=== PATIENT | female | born 1990 | race Caucasian/White ===

== ENCOUNTER 2016-06-04 13:03 | Outpatient (CLI) | payer OTHER ==
[~2016-06-04] VITALS: Ht 152.4 cm; Wt 69.2 kg
[~2016-06-04 13:03] MED LIST: CALC1TAB98 PO; FOLI1POW MC; IRON1TAB78 PO; PREN1TAB13 PO
[2016-06-04 13:13] VITALS: Ht 152.4 cm; Wt 69.2 kg
[2016-06-04 13:14] VITALS: BP 107/62; PULSE 100; RESP 18
--- NOTE | 2016-06-04 14:04 | RADRPT ---
PROCEDURE: US OB. CLINICAL INDICATION: Size and dates , IUGR TECHNIQUE: Multiple sonographic images of the pelvis and gravid uterus were obtained. The images were reviewed on a PACS workstation. COMPARISON: No prior studies are available for comparison. FINDINGS: There is a single viable intrauterine gestation. Cardiac activity is present with 148 beats per min [place]. There is a vertex presentation. The placenta is posterior. There is no evidence for an abruption or placenta previa. Measurements were made in order to determine age. The results are as follows: BPD =8.8 cm HC =31.9 cm AC =31.6 cm FL =6.8 cm Estimated gestational age of approximately 35 weeks and 4 days based on ultrasound measurements. Clinical age: 37 weeks and 1 day. The estimated date of delivery is 07/05/16, based on ultrasound measurements. The EFW = 2668 g, 15.8%, based on LMP age. RPTAT: AA IMPRESSION: Single viable intrauterine gestation of approximately 35 weeks and 4 days based on ultrasound measu rements. .He Reynolds MD, MD Date Time Electronically viewed and signed by .He Reynolds MD, on 06/04/2016 14:03 .S/
--- NOTE | 2016-06-04 14:05 | RADRPT ---
PROCEDURE: US OB biophysical profile. CLINICAL INDICATION: decreased movements, IUGR TECHNIQUE: Multiple sonographic images of the pelvis were obtained. The images were reviewed on a PACS workstation. COMPARISON: Same day FINDINGS: There is a single viable intrauterine gestation. Cardiac activity is present with 131 beats per min [place]. There is a vertex presentation. The placenta is posterior. There is no evidence of placental abruption. There is a normal amount of amniotic fluid with an FATOUMATA = 9.4 cm. Biophysical profile: movement 2/2 tone 2/2. breathing 2/2 FATOUMATA 2/2 Total 11/26 RPTAT: AA . IMPRESSION: Normal biophysical profile. . .He Reynolds MD, MD Date Time Electronically viewed and signed by .He Reynolds MD, MD on 06/04/2016 14:05 .S/
--- NOTE | 2016-06-04 14:43 | PN ---
Date/Time of Note Date/Time of Note DATE: 06/04/16 TIME: 14:37 OB Subjective Subjective Subjective June 04, 2016 Triage consult This patient is a 25 years old 2 para 1 0 with 1 spontaneous vaginal delivery in the past her due date is June 21, 2016 now 37 week. She came to the triage area to rule out IUGR she was actually sent from the clinic for the. In reviewing her past history as I mentioned she had 1 spontaneous vaginal delivery. She denies any surgeries or any other major medical problem she says she is allergic to ibuprofen and iodine other than that past medical history is negative on examination she is a well-developed well-nourished lady near term. Her ear nose throat is normal no thyroid enlargement chest is clear to auscultation percussion heart normal sinus rhythm abdomen is soft no contractions at this time. Uterus appears to be in vertex presentation was seen CVA tenderness extremities are normal no edema no varicosities. Rectal examination was not performed on exam her vital signs are normal. Blood pressure 101/62 pulse rate 100 lab test. NST was reactive with fairly good acceleration and variability no decelerations on ultrasound estimated weight was reported that 2668 g. Her biophysical profile was reported / her FATOUMATA was 9.4 cm disposition this positive finding patient will be discharged home and she will be followed by a perinatologist end of dictation thank you GABRIELA PRADO MD Jun 04, 2016 14:43
== END 2016-06-04 14:50 | disposition home or self-care (01) ==
LOC: OBT 13:03 → L-D 13:04 → OBT 14:50
PROVIDERS: ATTEND Obstetrics & Gynecology
DX: O36.5930 Maternal care for other known or suspected poor fetal growth, third trimester, not applicable or unspecified (principal); O36.8130 Decreased fetal movements, third trimester, not applicable or unspecified; Z3A.37 37 weeks gestation of pregnancy
CPT/HCPCS: 76815; 76818; Z7500; G0463

== ENCOUNTER 2016-06-11 13:24 | Outpatient (CLI) | payer OTHER ==
[~2016-06-11] VITALS: Ht 152.4 cm; Wt 69.7 kg
[2016-06-11 13:42] VITALS: Ht 152.4 cm; Wt 69.7 kg
[2016-06-11 13:43] VITALS: BP 113/55; PULSE 100; RESP 18
--- NOTE | 2016-06-11 14:25 | RADRPT ---
PROCEDURE: US biophysical profile. CLINICAL INDICATION: Decreased motion. TECHNIQUE: Multiple sonographic images of the uterus were obtained. The images were revi ewed on a PACS workstation. COMPARISON: 06/04/2016. FINDINGS: There is a single live intrauterine gestation. heart rate is 137 beats per minute. The position is cephalic. The placenta is right lateral grade II with no abruption or previa. The FATOUMATA is 8.0 cm. (Normal = 5-20 cm.) Breathing Movement: 2 Gross Body Movement: 2 Tone: 2 Qualitative Amniotic Fluid Volume: 2 TOTAL: 8 IMPRESSION: 1. The biophysical score is 8/8. 2. Amniotic fluid index is 8.0 cm. RPTAT: QQ .Alex Amato MD, Date Time Electronically viewed and signed by .Alex Amato MD, on 06/11/2016 14:25 .R/
--- NOTE | 2016-06-11 14:27 | RADRPT ---
PROCEDURE: Obstetrical ultrasound. CLINICAL INDICATION: , evaluation. Pelvic pain. TECHNIQUE: Transabdominal sonographic images of the pelvis are obtained. COMPARISON: Pelvic ultrasound 06/04/2016 FINDINGS: Single intrauterine gestation. There is a cephalic presentation. Measurements were made in order to determine age. The results are as follows: BPD = 8.81 cm HC = 32.03 cm AC = 33.48 cm FL = 7.13 cm Heart rate = 156 beats per minute The placenta is right lateral. There is no evidence for an abruption or placenta previa. Ovaries are not visualized. IMPRESSION: Single intrauterine gestation of approximately 36 weeks 3 days by ultrasound criteria. Estimated weight = 3044 g; 29 percentile for estimated ultrasound age. RPTAT: AADD .Get Gonzalez MD, Date Time Electronically viewed and signed by .Get Gonzalez MD, on 06/11/2016 14:27 .B/
--- NOTE | 2016-06-11 15:46 | CONS ---
Date/Time of Note Date/Time of Note DATE: 06/11/16 TIME: 15:40 Consultation Date/Type/Reason Admit Date/Time June 11, 2069 Triage consult: This patient is a 25 years old 2 para 1 with EDC of 06/24/2016 which makes her 38 weeks and 1 day. She came to triage area to rule out possible intrauterine growth retardation and possible low amniotic fluid On general examination she appeared to be very normal ,ear, nose throat. Chest. Heart, extremities all within normal limits. Abdomen was soft. heart tone was around 135 beats per minute. She was having rare contractions. heart tracing was reactive, no deceleration, good accelerations good variability. Her vital signs were normal; blood pressure 113/50 pulse rate 100 and temperature was 96 . The NST was reactive On the ultrasound study estimated weight was 3044 g. Biophysical profile was 8 over 8, amniotic fluid index was 8 cm. Disposition. With these positive findings patient was discharged home to be followed in the clinic. She will return for further evaluation next week. Initial Consult Date Exam/Review of Systems Vital Signs Vitals Vital Signs Date Time Temp Pulse Resp B/P Pulse Ox O2 Delivery O2 Flow Rate FiO2 06/11/16 13:43 98.2 100 18 113/55 Room Air GABRIELA PRADO MD Jun 11, 2016 15:46
== END 2016-06-11 15:40 | disposition home or self-care (01) ==
LOC: OBT 13:24 → L-D 13:25 → OBT 15:40
PROVIDERS: ATTEND Obstetrics & Gynecology
DX: O62.9 Abnormality of forces of labor, unspecified (principal); Z3A.38 38 weeks gestation of pregnancy
CPT/HCPCS: 76815; 76818; Z7500; G0463

== ENCOUNTER 2016-06-14 14:28 | Outpatient (CLI) | payer OTHER ==
[~2016-06-14] VITALS: Ht 152.4 cm; Wt 70.7 kg
[2016-06-14 14:33] VITALS: Ht 152.4 cm; Wt 70.7 kg
[2016-06-14 15:17] VITALS: BP 114/63; PULSE 104; RESP 18
--- NOTE | 2016-06-14 15:19 | RADRPT ---
PROCEDURE: US OB biophysical profile. CLINICAL INDICATION: decreased movements, IUGR TECHNIQUE: Multiple sonographic images of the pelvis were obtained. The images were reviewed on a PACS workstation. COMPARISON: 06/11/2016 FINDINGS: There is a single viable intrauterine gestation. Cardiac activity is present with 122 beats per min [place]. There is a vertex presentation. The placenta is fundal. There is no evidence of placental abruption. There is a normal amount of amniotic fluid with an FATOUMATA = 12.9 cm. Biophysical profile: movement 2/2 tone 2/2. breathing 2/2 FATOUMATA 2/2 Total 11/26 RPTAT: AA . IMPRESSION: Normal biophysical profile. . .He Reynolds MD, MD Date Time Electronically viewed and signed by .He Reynolds MD, MD on 06/14/2016 15:19 .S/
--- NOTE | 2016-06-14 16:12 | HP ---
Date/Time of Note Date/Time of Note DATE: 06/14/16 TIME: 16:09 OB - History Hx of Present Free Text/Dictation OB Triage Pt is a 25yo at 38+4 with concern for IUGR (EFW 29%ile on 06/11 w/FATOUMATA 8.0cm ) presenting to OB triage for NST/BPP/FATOUMATA. Pt reports normal FM, denies LOF, VB or UCs. PROCEDURE: US OB biophysical profile. CLINICAL INDICATION: decreased movements, IUGR TECHNIQUE: Multiple sonographic images of the pelvis were obtained. The images were reviewed on a PACS workstation. COMPARISON: 06/11/2016 FINDINGS: There is a single viable intrauterine gestation. Cardiac activity is present with 122 beats per minute. There is a vertex presentation. The placenta is fundal. There is no evidence of placental abruption. There is a normal amount of amniotic fluid with an FATOUMATA = 12.9 cm. Biophysical profile: movement 2/2 tone 2/2. breathing 2/2 FATOUMATA 2/2 Total 11/26 RPTAT: AA . IMPRESSION: Normal biophysical profile. Estimated Due Date: Jun 24, 2016 : 2 Para: 1 Obstetrical Complications: Growth Restriction (concern for IUGR) Past Family/Social History * Past Medical, Surgical, Family and Obstetric Histories reviewed from chart. OB Admission Exam Vital Signs Vital Signs Vital Signs Date Time Temp Pulse Resp B/P Pulse Ox O2 Delivery O2 Flow Rate FiO2 06/14/16 15:17 97.6 104 18 114/63 Room Air Physical Exam Heart Rate: 130's Accelerations: Accelerations Present Decelerations: No Decelerations Varibility: Moderate Contractions on Admission: >10 Minutes Apart (2 UCs/1 hour) OB Assessment/Plan Other Assessment: Reassuring status Other plan: Reactive NST, normal BPP and FATOUMATA Results reviewed with Dr. Torres by OB diabetes specialist and pt noted to be appropriate for d/c home Pt will f/up on 06/17/16 for repeat NST/BPP/FATOUMATA Strict precautions for FKC, Labor and ROM reviewed Patient's questions were answered to her satisfaction CAIT KELLY MD Jun 14, 2016 16:12
== END 2016-06-14 15:53 | disposition home or self-care (01) ==
LOC: OBT 14:28 → L-D 14:28 → OBT 15:53
PROVIDERS: ATTEND Obstetrics & Gynecology
DX: O36.5930 Maternal care for other known or suspected poor fetal growth, third trimester, not applicable or unspecified (principal); O36.8130 Decreased fetal movements, third trimester, not applicable or unspecified; Z3A.38 38 weeks gestation of pregnancy
CPT/HCPCS: 76818; Z7500; G0463

== ENCOUNTER 2016-06-17 16:00 | Outpatient (CLI) | payer OTHER ==
[~2016-06-17] VITALS: Ht 152.4 cm; Wt 70.4 kg
[2016-06-17 16:16] VITALS: Ht 152.4 cm; Wt 70.4 kg
[2016-06-17 16:17] VITALS: BP 110/62; PULSE 96; RESP 18
--- NOTE | 2016-06-17 17:00 | RADRPT ---
PROCEDURE: US OB biophysical profile. CLINICAL INDICATION: decreased movements, low FATOUMATA TECHNIQUE: Multiple sonographic images of the pelvis were obtained. The images were reviewed on a PACS workstation. COMPARISON: 06/14/2016 FINDINGS: There is a single viable intrauterine gestation. Cardiac activity is present with 146 beats per min [place]. There is a vertex presentation. The placenta is fundal. There is no evidence of placental abruption. There is a slightly decreased amount of amniotic fluid with an FATOUMATA = 7.2 cm. Biophysical profile: movement 2/2 tone 2/2. breathing 2/2 FATOUMATA 2/2 Total 11/26 RPTAT: AA . IMPRESSION: Normal biophysical profile. Mild oligohydramnios. . .He Reynolds MD, MD Date Time Electronically viewed and signed by .He Reynolds MD, MD on 06/17/2016 17:00 .S/
--- NOTE | 2016-06-17 18:25 | TRIAGE ---
OB Triage Datetime Report Generated by CPN: 06/17/2016 18:24 Datetime: 06/17/2016 18:00 Labor Evaluation Frequency: OCC Monitor Mode: External Duration (sec)2399: 50-70 Quality: Mild Pattern: Normal: <= 5 Contractions in 10 Minutes Resting Tone [place]: Relaxed Heart Rate FHR Baseline Rate: 135 FHR Baseline Changes: No Baseline Change Variability: Moderate 6-25 bpm Accelerations: 15X15 Decelerations: None Category: Category I Datetime: 06/17/2016 17:29 Vaginal Exam Dilatation (cms): 0.0 Effacement (%): 0 Station: -3 Exam By: CKUNIYOSHI Vaginal Bleeding: None Cervix, Consistency: Moderate Cervix, Position: Posterior Datetime: 06/17/2016 17:12 Labor Evaluation Frequency: x3 Monitor Mode: External Duration (sec)2399: 60 Quality: Mild Pattern: Normal: <= 5 Contractions in 10 Minutes Resting Tone [place]: Relaxed Heart Rate FHR Baseline Rate: 135 FHR Baseline Changes: No Baseline Change Variability: Moderate 6-25 bpm Accelerations: 15X15 Decelerations: None Category: Category I Datetime: 06/17/2016 16:21 Assessment Type: Admission Assessment Maternal Assessment Level of Consciousness: Fully Conscious DTR's/Clonus: DTRs 2+; No Clonus Headache: Denies Blurred Vision: No Respiratory Effort: Unlabored; Regular Rhythm; Equal Expansion Breath Sounds, Left: Clear and Equal Breath Sounds, Right: Clear and Equal Nausea/Vomiting: Denies RUQ Epigastric Pain: Denies Lower Extremities Edema: None Degree: None Upper Extremities Edema: None Degree: None Facial Edema: None Fall Risk Assessment History of Falling: (0) No Secondary Diagnosis: (0) No Ambulatory Aid: (0) Bedrest/Nurse Assist IV Therapy: (0) No Gait: (0) Normal/Bedrest/Immobile Mental Status: (0) Oriented to Own Ability Fall Score: 0 Fall Risk Score Definition: No Risk: No action required Labor Evaluation Frequency: OCCAS Monitor Mode: External Duration (sec)2399: 50-80 Quality: Mild Pattern: Normal: <= 5 Contractions in 10 Minutes Resting Tone [place]: Relaxed Heart Rate FHR Baseline Rate: 135 Monitor Mode: External US Variability: Moderate 6-25 bpm Accelerations: 15X15 Decelerations: None Category: Category I Datetime: 06/17/2016 16:19 Time of Arrival: 06/17/2016 15:56 EGA: 39.0 Arrived By: Ambulatory Arrived From: Home Chief Complaint: FOLLOW UP BPP WITH FATOUMATA Movement: Present Contractions: Denies/Absent Rupture of Membranes: Denies Vaginal Bleeding: None Vaginal Discharge: Denies Recent Sexual Intercouse: Denies Abdominal Trauma: Not Applicable Patient Complaints: Other Initial Plan: NST, BPP AND FATOUMATA Datetime: 06/14/2016 15:30 Monitor Mode: External Resting Tone [place]: Relaxed Heart Rate FHR Baseline Rate: 140 Monitor Mode: External US FHR Baseline Changes: No Baseline Change Variability: Moderate 6-25 bpm Accelerations: 15X15 Decelerations: None Category: Category I Pain Assessment Pain Presence: None/Denies Datetime: 06/14/2016 14:40 Assessment Type: Triage Maternal Assessment Level of Consciousness: Fully Conscious DTR's/Clonus: DTRs 2+; No Clonus Headache: Denies Blurred Vision: No Respiratory Effort: Unlabored; Regular Rhythm; Equal Expansion Breath Sounds, Left: Clear and Equal Breath Sounds, Right: Clear and Equal Nausea/Vomiting: Denies RUQ Epigastric Pain: Denies Lower Extremities Edema: None Degree: None Upper Extremities Edema: None Degree: None Facial Edema: None Fall Risk Assessment History of Falling: (0) No Secondary Diagnosis: (0) No Ambulatory Aid: (0) Bedrest/Nurse Assist IV Therapy: (0) No Gait: (0) Normal/Bedrest/Immobile Mental Status: (0) Oriented to Own Ability Fall Score: 0 Fall Risk Score Definition: No Risk: No action required Datetime: 06/14/2016 14:33 Stage of : OB Triage Datetime: 06/14/2016 14:25 Time of Arrival: 06/14/2016 14:25 EGA: 38.4 Arrived By: Ambulatory Arrived From: Home Chief Complaint: Follow up BPP/FATOUMATA _ NST for R/O IUGR Movement: Present Contractions: Denies/Absent Rupture of Membranes: Denies Vaginal Bleeding: None Vaginal Discharge: Denies Recent Sexual Intercouse: Denies Abdominal Trauma: Not Applicable Patient Complaints: None Time Provider Notified: 06/14/2016 14:33 Provider Notified: Melissa Initial Plan: NST, BPP/FATOUMATA Datetime: 06/11/2016 14:50 Labor Evaluation Frequency: OCCAS Monitor Mode: External Duration (sec)2399: 40-70 Quality: Mild Pattern: Normal: <= 5 Contractions in 10 Minutes Resting Tone [place]: Relaxed Heart Rate FHR Baseline Rate: 135 Monitor Mode: External US FHR Baseline Changes: No Baseline Change Variability: Moderate 6-25 bpm Accelerations: 15X15 Decelerations: None Category: Category I Datetime: 06/11/2016 13:50 Labor Evaluation Frequency: OCCAS Monitor Mode: External Duration (sec)2399: 50-100 Quality: Mild Pattern: Normal: <= 5 Contractions in 10 Minutes Resting Tone [place]: Relaxed Heart Rate FHR Baseline Rate: 140 Monitor Mode: External US Variability: Moderate 6-25 bpm Accelerations: 15X15 Decelerations: None Category: Category I Datetime: 06/11/2016 13:49 Assessment Type: Admission Assessment Maternal Assessment Level of Consciousness: Fully Conscious DTR's/Clonus: DTRs 2+; No Clonus Headache: Denies Blurred Vision: No Respiratory Effort: Unlabored; Regular Rhythm; Equal Expansion Breath Sounds, Left: Clear and Equal Breath Sounds, Right: Clear and Equal Nausea/Vomiting: Denies RUQ Epigastric Pain: Denies Lower Extremities Edema: None Degree: None Upper Extremities Edema: None Degree: None Facial Edema: None Fall Risk Assessment History of Falling: (0) No Secondary Diagnosis: (0) No Ambulatory Aid: (0) Bedrest/Nurse Assist IV Therapy: (0) No Gait: (0) Normal/Bedrest/Immobile Mental Status: (0) Oriented to Own Ability Fall Score: 0 Fall Risk Score Definition: No Risk: No action required Datetime: 06/11/2016 13:45 Time of Arrival: 06/11/2016 13:23 EGA: 38.1 Arrived By: Ambulatory Arrived From: Office Chief Complaint: R/O IUGR Movement: Present Contractions: Denies/Absent Rupture of Membranes: Denies Vaginal Bleeding: None Vaginal Discharge: Denies Recent Sexual Intercouse: Denies Abdominal Trauma: Not Applicable Patient Complaints: Other Time Provider Notified: 06/11/2016 14:59 Provider Notified: DR LAGUNA Initial Plan: NST Datetime: 06/04/2016 14:08 Labor Evaluation Frequency: 0 Pattern: Normal: <= 5 Contractions in 10 Minutes Resting Tone [place]: Relaxed Heart Rate FHR Baseline Rate: 140 Monitor Mode: External US FHR Baseline Changes: No Baseline Change Variability: Moderate 6-25 bpm Accelerations: 15X15 Decelerations: None Category: Category I Datetime: 06/04/2016 13:24 Assessment Type: Admission Assessment Maternal Assessment Level of Consciousness: Fully Conscious DTR's/Clonus: DTRs 2+; No Clonus Headache: Denies Blurred Vision: No Respiratory Effort: Unlabored; Regular Rhythm; Equal Expansion Breath Sounds, Left: Clear and Equal Breath Sounds, Right: Clear and Equal Nausea/Vomiting: Denies RUQ Epigastric Pain: Denies Lower Extremities Edema: None Degree: None Upper Extremities Edema: None Degree: None Facial Edema: None Fall Risk Assessment History of Falling: (0) No Secondary Diagnosis: (0) No Ambulatory Aid: (0) Bedrest/Nurse Assist IV Therapy: (0) No Gait: (0) Normal/Bedrest/Immobile Mental Status: (0) Oriented to Own Ability Fall Score: 0 Fall Risk Score Definition: No Risk: No action required Labor Evaluation Frequency: 0 Pattern: Normal: <= 5 Contractions in 10 Minutes Resting Tone [place]: Relaxed Heart Rate FHR Baseline Rate: 145 Monitor Mode: External US Variability: Moderate 6-25 bpm Accelerations: 15X15 Decelerations: None Category: Category I Datetime: 06/04/2016 13:23 EGA: 37.1 Datetime: 06/04/2016 13:21 Time of Arrival: 06/04/2016 12:50 Arrived By: Ambulatory Arrived From: Office Chief Complaint: R/O IUGR Movement: Present Contractions: Denies/Absent Rupture of Membranes: Denies Vaginal Bleeding: None Vaginal Discharge: Denies Recent Sexual Intercouse: Denies Abdominal Trauma: Not Applicable Patient Complaints: Other Time Provider Notified: 06/04/2016 14:24 Provider Notified: DR LAGUNA Initial Plan: JENELLE, ANNIKA, EFW
== END 2016-06-17 18:20 | disposition home or self-care (01) ==
LOC: OBT 16:00 → L-D 16:00 → OBT 18:20
PROVIDERS: ATTEND Obstetrics & Gynecology
DX: O36.8130 Decreased fetal movements, third trimester, not applicable or unspecified (principal); O41.03X0 Oligohydramnios, third trimester, not applicable or unspecified; Z3A.39 39 weeks gestation of pregnancy
CPT/HCPCS: 76818; Z7500; G0463

== ENCOUNTER 2016-06-20 16:04 | Outpatient (CLI) | payer OTHER ==
[~2016-06-20] VITALS: Ht 152.4 cm; Wt 54.0 kg
--- NOTE | 2016-06-20 17:21 | RADRPT ---
PROCEDURE: US OB. CLINICAL INDICATION: Low amniotic fluid volume. TECHNIQUE: Multiple sonographic images of the uterus were obtained. The images were revi ewed on a PACS workstation. COMPARISON: 06/11/2016. FINDINGS: There is a single live intrauterine gestation. heart rate is 141 beats per minute. Measurements were made in order to determine age. The results are as follows: BPD = 9.30 cm. HC = 33.53 cm. AC = 34.52 cm. FL = 7.63 cm. Estimated weight is 3506 +/- 526 grams. LMP growth percentile is 49 %. Amniotic fluid volume is subjectively diminished. Menstrual age by ultrasound dates is 38 weeks 3 days. The estimated date of delivery is 07/01/2016. Position is cephalic and placenta is fundal grade II. There is no evidence for an abruption or place nta previa. IMPRESSION: 1. Single live intrauterine gestation of 38 weeks 3 days menstrual age by ultrasound dates. 2. The estimated date of delivery is 07/01/2016. 3. Amniotic fluid volume is subjectively diminished. RPTAT: QQ .Alex Amato MD, Date Time Electronically viewed and signed by .Alex Amato MD, on 06/20/2016 17:20 .R/
--- NOTE | 2016-06-20 17:28 | RADRPT ---
PROCEDURE: US biophysical profile. CLINICAL INDICATION: Low amniotic fluid volume. TECHNIQUE: Multiple sonographic images of the uterus were obtained. The images were revi ewed on a PACS workstation. COMPARISON: 06/17/2016. FINDINGS: There is a single live intrauterine gestation. heart rate is 136 beats per minute. The position is cephalic. The placenta is fundal grade II with no abruption or previa. The FATOUMATA is 8.4 cm. (Normal = 5-20 cm.) Breathing Movement: 2 Gross Body Movement: 2 Tone: 2 Qualitative Amniotic Fluid Volume: 2 TOTAL: 8 IMPRESSION: 1. The biophysical score is 8/8. 2. Amniotic fluid index is 8.4 cm; prior was 7.2 cm. RPTAT: QQ .Alex Amato MD, Date Time Electronically viewed and signed by .Alex Amato MD, MD on 06/20/2016 17:28 .R/
== END 2016-06-20 18:15 | disposition home or self-care (01) ==
LOC: L-D 16:04 → OBT 16:04
PROVIDERS: ATTEND Obstetrics & Gynecology
DX: O41.03X0 Oligohydramnios, third trimester, not applicable or unspecified (principal); Z3A.39 39 weeks gestation of pregnancy
CPT/HCPCS: 76815; 76818; Z7500; G0463

== ENCOUNTER 2016-06-23 16:30 | Inpatient (IN) | payer OTHER ==
[~2016-06-23] VITALS: Ht 152.4 cm; Wt 70.0 kg
[2016-06-23 16:57] VITALS: Ht 152.4 cm; Wt 70.0 kg
[2016-06-23 16:58] VITALS: BP 111/65; PULSE 100; RESP 16
--- NOTE | 2016-06-23 18:25 | RADRPT ---
PROCEDURE: OB ultrasound for biophysical profile. CLINICAL INDICATION: Low amniotic fluid index. TECHNIQUE: Multiple sonographic images of the pelvis were obtained. Transabdominal view of the ut erus are available for review. COMPARISON: 06/20/2016. FINDINGS: breathing movement = 2/2 tone = 2/2 motion = 2/2 FATOUMATA = 10.9 cm Single live intrauterine with cardiac activity (163 beats per minute). IMPRESSION: 1. Single viable intrauterine gestation. 2. Biophysical profile = 8/8. 3. FATOUMATA = 10.9 cm, within normal limits. RPTAT: HEKC .Juan David Whitfield MD, MD Date Time Electronically viewed and signed by .Juan David Whitfield MD, on 06/23/2016 18:24 .C/
[2016-06-23] MEDS ORDERED: BUTORPHANOL 2 MG INJ IV PRN (18:30)
[2016-06-23] MEDS ORDERED: LIDOCAINE 1% (MPF) 30 ML INJ INJ PRN (18:30)
[2016-06-23] MEDS ORDERED: MISOPROSTOL 200 MCG TAB PR PRN (18:30)
[2016-06-23] MEDS ORDERED: IBUPROFEN 600 MG TAB PO PRN (18:30)
[2016-06-23] MEDS ORDERED: METHYLERGONOVINE 0.2 MG INJ IM PRN (18:30)
[2016-06-23] MEDS ORDERED: OXYTOCIN 30 UNITS/LR 500 ML IV SCH ×2 (18:30)
[2016-06-23] MEDS ORDERED: LACTATED RINGER'S 1,000 ML IV PRN (18:30)
[2016-06-23] MEDS ORDERED: ACETAMINOPHEN/CODEINE #3 TAB PO PRN (18:30)
[2016-06-23] MEDS ORDERED: OXYTOCIN 30 UNITS/LR 500 ML IV PRN (18:30)
[2016-06-23] MEDS ORDERED: CARBOPROST 250 MCG INJ IM PRN (18:30)
--- NOTE | 2016-06-23 18:50 | TRIAGE ---
OB Triage Datetime Report Generated by CPN: 06/23/2016 18:49 Datetime: 06/23/2016 17:57 Pattern: Normal: <= 5 Contractions in 10 Minutes Contraction Comments: NO UC Heart Rate FHR Baseline Rate: 145 Monitor Mode: External US Variability: Moderate 6-25 bpm Accelerations: 15X15 Decelerations: None Category: Category I Pain Presence: None/Denies Pain Type: N/A Datetime: 06/23/2016 17:00 Pattern: Normal: <= 5 Contractions in 10 Minutes Resting Tone [place]: Relaxed Contraction Comments: NO UC Heart Rate FHR Baseline Rate: 135 Monitor Mode: External US Variability: Moderate 6-25 bpm Accelerations: 15X15 Decelerations: None Category: Category I Pain Presence: None/Denies Pain Type: N/A Datetime: 06/23/2016 16:50 Assessment Type: Triage Maternal Assessment Level of Consciousness: Fully Conscious DTR's/Clonus: DTRs 2+; No Clonus Headache: Denies Blurred Vision: No Respiratory Effort: Unlabored; Regular Rhythm; Equal Expansion Breath Sounds, Left: Clear and Equal Breath Sounds, Right: Clear and Equal Nausea/Vomiting: Denies RUQ Epigastric Pain: Denies Lower Extremities Edema: None Degree: None Upper Extremities Edema: None Degree: None Facial Edema: None Fall Risk Assessment History of Falling: (0) No Secondary Diagnosis: (0) No Ambulatory Aid: (0) Bedrest/Nurse Assist IV Therapy: (0) No Gait: (0) Normal/Bedrest/Immobile Mental Status: (0) Oriented to Own Ability Fall Score: 0 Fall Risk Score Definition: No Risk: No action required Datetime: 06/23/2016 16:49 Time of Arrival: 06/23/2016 16:30 EGA: 39.6 Arrived By: Ambulatory Arrived From: Home Chief Complaint: FOLLOW UP FOR BPP Movement: Present Rupture of Membranes: Denies Vaginal Discharge: Denies Recent Sexual Intercouse: Denies Abdominal Trauma: Not Applicable Initial Plan: nst, bpp Datetime: 06/20/2016 17:56 Stage of : OB Triage Datetime: 06/20/2016 17:50 Stage of : OB Triage Datetime: 06/20/2016 17:27 Labor Evaluation Frequency: OCCAS Monitor Mode: External Duration (sec)2399: 50-70 Quality: Mild Pattern: Normal: <= 5 Contractions in 10 Minutes Resting Tone [place]: Relaxed Heart Rate FHR Baseline Rate: 145 Monitor Mode: External US Variability: Marked >25 bpm Accelerations: 15X15 Decelerations: None Category: Category I Pain Assessment Pain Scale: 0 Pain Presence: None/Denies Pain Type: N/A Pain Goal: 3 Pain Relief Measures: Comfort Measures Datetime: 06/20/2016 16:23 Stage of : OB Triage Datetime: 06/20/2016 16:17 Stage of : OB Triage Assessment Type: Triage Maternal Assessment Level of Consciousness: Fully Conscious DTR's/Clonus: DTRs 2+; No Clonus Headache: Denies Blurred Vision: No Respiratory Effort: Unlabored; Regular Rhythm; Equal Expansion Breath Sounds, Left: Clear and Equal Breath Sounds, Right: Clear and Equal Nausea/Vomiting: Denies RUQ Epigastric Pain: Denies Lower Extremities Edema: None Degree: None Upper Extremities Edema: None Degree: None Facial Edema: None Temperature Route: Axillary Fall Risk Assessment History of Falling: (0) No Secondary Diagnosis: (0) No Ambulatory Aid: (0) Bedrest/Nurse Assist IV Therapy: (0) No Gait: (0) Normal/Bedrest/Immobile Mental Status: (0) Oriented to Own Ability Fall Score: 0 Fall Risk Score Definition: No Risk: No action required Labor Evaluation Frequency: 0 Monitor Mode: External Quality: Mild Pattern: Normal: <= 5 Contractions in 10 Minutes Resting Tone [place]: Relaxed Heart Rate FHR Baseline Rate: 145 Monitor Mode: External US Variability: Moderate 6-25 bpm Accelerations: 10X10 Decelerations: None Category: Category I Pain Assessment Pain Scale: 0 Pain Presence: None/Denies Pain Type: N/A Pain Goal: 3 Pain Relief Measures: Comfort Measures Datetime: 06/20/2016 16:15 Time of Arrival: 06/20/2016 16:00 EGA: 39.3 Arrived By: Ambulatory Arrived From: Home Chief Complaint: F/U LOW [place], DENIES UC'S, BLEEDING OR LEAKING OF FLUID Movement: Present Contractions: Denies/Absent Rupture of Membranes: Denies Vaginal Bleeding: None Vaginal Discharge: Denies Recent Sexual Intercouse: Denies Abdominal Trauma: Not Applicable Patient Complaints: None Time Provider Notified: 06/20/2016 16:23 Provider Notified: JASE Initial Plan: MONITOR, FATOUMATA Datetime: 06/17/2016 16:21 Fall Score: 0 Fall Risk Score Definition: No Risk: No action required Datetime: 06/17/2016 16:19 EGA: 39.0 Datetime: 06/14/2016 14:40 Fall Score: 0 Fall Risk Score Definition: No Risk: No action required Datetime: 06/14/2016 14:25 EGA: 38.4 Datetime: 06/11/2016 13:49 Fall Score: 0 Fall Risk Score Definition: No Risk: No action required Datetime: 06/11/2016 13:45 EGA: 38.1 Datetime: 06/04/2016 13:24 Fall Score: 0 Fall Risk Score Definition: No Risk: No action required Datetime: 06/04/2016 13:23 EGA: 37.1
[2016-06-23] MEDS: LACTATED RINGER'S 1,000 ML IV SCH (19:03)
[2016-06-23 19:56] LABS: ADD SCAN DIFF NO
[2016-06-23 20:04] LABS: BASOPHILS % 0.2 % (0.0-2.0); EOSINOPHILS # 0.1 10^3/ul (0.0-0.5); EOSINOPHILS % 0.9 % (0.0-7.0); HEMATOCRIT 33.4 % (37.0-47.0); HEMOGLOBIN 11.3 g/dl (12.0-16.0); LYMPHOCYTES # 2.9 10^3/ul (0.8-2.9); LYMPHOCYTES % 22.8 % (15.0-51.0); MEAN CORPUSCULAR HEMOGLOBIN 31.3 pg (29.0-33.0); MEAN CORPUSCULAR HGB CONC 33.8 g/dl (32.0-37.0); MEAN CORPUSCULAR VOLUME 92.5 fl (82.0-101.0); MEAN PLATELET VOLUME 11.1 fl (7.4-10.4); MONOCYTE # 0.8 10^3/ul (0.3-0.9); MONOCYTES % 6.5 % (0.0-11.0); NEUTROPHIL # 8.6 10^3/ul (1.6-7.5); NEUTROPHILS % 68.7 % (39.0-77.0); PLATELET COUNT 319 10^3/UL (140-415); RED BLOOD COUNT 3.61 10^6/ul (4.20-5.40); WHITE BLOOD COUNT 12.6 10^3/ul (4.8-10.8)
[2016-06-23 20:10] LABS: INR 0.91; PROTIME 12.2 Sec (12.2-14.2)
[2016-06-23 20:11] LABS: PARTIAL THROMBOPLASTIN TIME 25.3 Sec (25.0-35.0)
[2016-06-23] MEDS ORDERED: DINOPROSTONE 10 MG VAG SUPP VAG ONE (20:30)
[2016-06-24] MEDS: LACTATED RINGER'S 1,000 ML IV SCH (00:40)
[2016-06-24] MEDS ORDERED: FENTAnyl 2MCG/ML-ROPIV 0.2% 100 ML ONE (05:42)
[2016-06-24] MEDS ORDERED: FENTAnyl 2MCG/ML-ROPIV 0.2% 100 ML BAG EPI SCH (06:30)
[2016-06-24] MEDS ORDERED: NALOXONE (0.4 MG/ML) INJ IV PRN (06:30)
[2016-06-24 08:59] LABS: BARBITURATES Negative (NEGATIVE); BENZODIAZEPINES Negative (NEGATIVE); CANNABINOIDS Negative (NEGATIVE); COCAINE Negative (NEGATIVE); OPIATES Negative (NEGATIVE)
--- NOTE | 2016-06-24 10:18 | HP ---
Date/Time of Note Date/Time of Note DATE: 06/24/16 TIME: 10:10 OB - History Hx of Present Free Text/Dictation 25 y.o at 39w6d here for f/u f/u for IUGR and berderline oligohydramnios for the last few weeks today FATOUMATA ok 10 BPP 8/8 EFW 49% CX ftp suggested for INDUCTION ,patient agreed admitted for induction with cervidil Estimated Due Date: Jun 24, 2016 : 2 Para: 1 Spontaneous : 0 Therapeutic : 0 Care: Good Care Ultrasounds: Normal mid trimester US Obstetrical Complications: None, Growth Restriction, Other (borderline oligohydramnios) Past Family/Social History * Past Medical, Surgical, Family and Obstetric Histories reviewed from chart. Blood Type: O+ Rubella: immune RPR/VDRL: Negative GBS Status: Negative HBsAG: Negative OB Admission Exam Vital Signs Vital Signs Vital Signs Date Time Temp Pulse Resp B/P Pulse Ox O2 Delivery O2 Flow Rate FiO2 06/23/16 16:58 98.1 100 16 111/65 Physical Exam HEENT: WNL Heart: Rhythm Normal Lungs: Clear, Equal Abdomen: WNL Extremities: Normal Reflexes: Normal Cervical Dilatation: Fingertip Effacement: 50% Station: -3 Membranes: Intact Amniotic Fluid: Unevaluable Heart Rate: 140's Accelerations: Accelerations Present Decelerations: Variable Decelerations Varibility: Moderate Contractions on Admission: >10 Minutes Apart Intensity: Mild Last 72 hours Lab Results CBC & BMP 06/23/16 19:30 OB Assessment/Plan Induction Method: per Misoprostol Protocol JIM LAGUNA MD Jun 24, 2016 10:18
--- NOTE | 2016-06-24 10:22 | LDN ---
Date/Time of Note Date/Time of Note DATE: 06/24/16 TIME: 10:18 Delivery Summary arm at complete clear Placenta Delivered: Spontaneously Meconium: none Perineum intact?: No Perineal laceration: 1 Perineal laceration repair: 000CH SH MEDIAL ASPECT OF LABIA MINORA Anesthesia type: Epidural Estimated blood loss: 50 Sponge & Needle done & correct: Yes All needle counts correct: Yes Any foreign bodies felt in the: No Problems: Delivery Information Sex Sex: female Apgars 1 Minute: 9 5 Minute: 9 Suctioning Nose & mouth suctioned at ariane: Yes Delee suction performed: No Umbilical Cord Umbilical cord with: 3 Vessels Cord presentations: no nuchal cord Cord Blood was obtained: Yes Mother & Baby Disposition Disposition Mom & Baby to Maternity; Good: Yes Mom transferred to: Other () Baby to NICU: No JIM LAGUNA MD Jun 24, 2016 10:21
[2016-06-24 11:10] VITALS: BP 101/55; PULSE 84; RESP 17
[2016-06-24] MEDS ORDERED: OXYTOCIN 30 UNITS/LR 500 ML IV PRN (11:30)
[2016-06-24] MEDS ORDERED: CARBOPROST 250 MCG INJ IM PRN (11:30)
[2016-06-24] MEDS ORDERED: ZOLPIDEM 5 MG TAB PO PRN (11:30)
[2016-06-24] MEDS ORDERED: LANOLIN 7 GM TUBE TOP PRN (11:30)
[2016-06-24] MEDS ORDERED: METHYLERGONOVINE 0.2 MG INJ IM PRN (11:30)
[2016-06-24] MEDS ORDERED: MISOPROSTOL 200 MCG TAB PR PRN (11:30)
[2016-06-24] MEDS ORDERED: OXYCODONE/ASPIRIN (4.88/325) TAB PO PRN ×2 (11:30)
[2016-06-24 11:40] VITALS: BP 96/53; PULSE 87; RESP 17
[2016-06-24] MEDS: WITCH HAZEL/GLYCERIN PAD PR PRN (13:35)
[2016-06-24] MEDS: BENZOCAINE 20% 56 ML SPRAY TOP PRN (13:35)
[2016-06-24] MEDS: ACETAMINOPHEN 500 MG TAB PO PRN ×2 (14:46→21:02)
[2016-06-24 16:15] VITALS: BP 98/58; PULSE 96; RESP 16
[2016-06-24 19:48] VITALS: BP 118/70; RESP 18
[2016-06-24] MEDS: SENNA/DOCUSATE NA (8.6MG/50MG) TAB PO SCH (21:02)
[2016-06-25 00:30] VITALS: BP 116/72; PULSE 88; RESP 18
[2016-06-25 05:11] VITALS: BP 110/63; PULSE 88; RESP 18
[2016-06-25 08:00] VITALS: BP 105/56; PULSE 84; RESP 16
[2016-06-25 08:21] LABS: ADD SCAN DIFF NO
[2016-06-25 08:29] LABS: BASOPHILS % 0.3 % (0.0-2.0); EOSINOPHILS # 0.1 10^3/ul (0.0-0.5); HEMATOCRIT 34.3 % (37.0-47.0); HEMOGLOBIN 11.6 g/dl (12.0-16.0); LYMPHOCYTES # 2.9 10^3/ul (0.8-2.9); LYMPHOCYTES % 19.9 % (15.0-51.0); MEAN CORPUSCULAR HEMOGLOBIN 31.4 pg (29.0-33.0); MEAN CORPUSCULAR HGB CONC 33.8 g/dl (32.0-37.0); MEAN CORPUSCULAR VOLUME 92.7 fl (82.0-101.0); MONOCYTES % 6.7 % (0.0-11.0); NEUTROPHIL # 10.4 10^3/ul (1.6-7.5); NEUTROPHILS % 71.5 % (39.0-77.0); PLATELET COUNT 281 10^3/UL (140-415); WHITE BLOOD COUNT 14.5 10^3/ul (4.8-10.8)
[2016-06-25] MEDS: ACETAMINOPHEN 500 MG TAB PO PRN ×3 (08:38→21:24)
[2016-06-25] MEDS: SENNA/DOCUSATE NA (8.6MG/50MG) TAB PO SCH ×2 (08:38→21:15)
--- NOTE | 2016-06-25 13:17 | PN ---
Date/Time of Note Date/Time of Note DATE: 06/25/16 TIME: 13:15 OB Subjective Subjective Subjective no c/o OB Objective Objective Objective vss afebrile fundus firm lochia min calf neg for tenderness OB Assessment/Plan Other Assessment: stable Induction Method: per Pitocin Protocol Other plan: discharge home in am JIM LAGUNA MD Jun 25, 2016 13:16
[2016-06-25 20:30] VITALS: BP 111/69; PULSE 85; RESP 20
[2016-06-26 03:30] VITALS: BP 110/66; PULSE 82; RESP 18
[2016-06-26 07:45] VITALS: BP 109/60; PULSE 91; RESP 18
[2016-06-26] MEDS: ACETAMINOPHEN 500 MG TAB PO PRN (08:36)
[2016-06-26] MEDS: SENNA/DOCUSATE NA (8.6MG/50MG) TAB PO SCH (08:36)
[2016-06-26] MEDS ORDERED: DIPHTH/TET/ACEL PERTUSS (ADULT) 0.5 ML VIAL IM* ONE (09:00)
--- NOTE | 2016-06-26 09:28 | PD.PPDC ---
[employer] Discharge Instruction Diagnosis Final Diagnosis: s/p normal vaginal delivery Condition Patient Condition: Stable Diet Diet: Resume Regular Diet Activity/Restrictions Activity: May Shower Restrictions: No Lifting No Sexual Activity Nothing in the Vagina No [place] No Tampons, douche Follow-up Follow-up with Physician: 6, Week/Weeks Return to clinic for [facility] Instructions: Fever greater than 101 Chills Worsening abdominal pain Excessive Vaginal Bleeding More than 2 pads per hour Unable to tolerate diet OB Instructions: Breast Tenderness Depression Blurried Vision Headache JIM LAGUNA MD Jun 26, 2016 09:28
--- NOTE | 2016-06-26 09:30 | DS ---
Date/Time of Note Date/Time of Note DATE: 06/26/16 TIME: 09:29 Obstetrical Discharge Record Final Diagnosis Final Diagnosis: Term delivered Vaginal Delivery Obstetrical Delivery: Spontaneous, Laceration, Repaired Complications Augmentation: No Induction: Yes Condition on Discharge Physical Assessment Last Vitals: vss afebrile Voiding: Yes Bowel Movement: Yes Breast: Soft, non-tender Fundus: Firm Calf Tenderness: No Patient Condition: Stable JIM LAGUNA MD Jun 26, 2016 09:30
[2016-06-26] MEDS: BENZOCAINE 20% 56 ML SPRAY TOP PRN (15:18)
[2016-06-26] MEDS: WITCH HAZEL/GLYCERIN PAD PR PRN (15:18)
== END 2016-06-26 16:17 | disposition home or self-care (01) | DRG 775 ==
LOC: OBT 16:30 → L-D 16:31 → OBT 18:22 → PP1 06-24 11:12
PROVIDERS: ADMIT Obstetrics & Gynecology; ATTEND Obstetrics & Gynecology
PROC: 4A1HX4Z Monitoring of Products of Conception, Cardiac Electrical Activity, External Approach (ICD-10-PCS; 2016-06-23)
PROC: 3E0P7GC Introduction of Other Therapeutic Substance into Female Reproductive, Via Natural or Artificial Opening (ICD-10-PCS; 2016-06-23)
PROC: 10E0XZZ Delivery of Products of Conception, External Approach (ICD-10-PCS; principal; 2016-06-24)
PROC: 0HQ9XZZ Repair Perineum Skin, External Approach (ICD-10-PCS; 2016-06-24)
DX: O36.5930 Maternal care for other known or suspected poor fetal growth, third trimester, not applicable or unspecified (principal); O76 Abnormality in fetal heart rate and rhythm complicating labor and delivery; O70.0 First degree perineal laceration during delivery; Z3A.39 39 weeks gestation of pregnancy; Z37.0 Single live birth
CPT/HCPCS: 62319; 76818; 80307; 85025; 85610; 85730; 86592; 86900; 86901; 87340; 90715; G0463; J2590; J3010; J7120